=== PATIENT | female | born 1965 | race Caucasian/White ===

== ENCOUNTER → 2022-01-11 13:13 | Outpatient (CLI) | payer SELFPAY ==
--- NOTE | ~2022-01-11 | US_ITS ---
EXAMINATION: US pelvic complete w TV EXAM DATE: 01/11/2022 14:01 INDICATION: Post menopausal bleeding. TECHNIQUE: Pelvic transabdominal and transvaginal sonogram was performed. There are multiple graysca le and Doppler images available for interpretation. There is no prior study for comparison. FINDINGS: Uterus measures 17.0 x 8.3 x 11.7 cm, enlarged heterogeneous endometrium with at least 2 f ibroids suspected, up to 6 cm. Endometrial stripe measures 15 mm, considered abnormally thickened if postmenopausal. There is no free pelvic fluid. Right adnexa: Possible identification of a right ovary transabdominally measuring 4.4 x 3.1 x 3.9 cm, unremarkable. Left adnexa: The ovary is not identified. There is no adnexal mass. IMPRESSION: 1. Endometrial stripe 1.5 cm, considered abnormal if postmenopausal. Differential diagnosis includes endometrial hyperplasia, cancer. 2. Fibroid uterus. Reviewed, dictated and finalized at location . IMPRESSION: 1. Endometrial stripe 1.5 cm, considered abnormal if postmenopausal. Different ial diagnosis includes endometrial hyperplasia, cancer. 2. Fibroid uterus.
== END ==
PROVIDERS: PCP Family Medicine; Visit Provider Family Medicine
DX: N95.0 Postmenopausal bleeding (principal); D25.9 Leiomyoma of uterus, unspecified
CPT/HCPCS: 76830; 76856